=== PATIENT | male | born 1975 | race Caucasian/White ===

== ENCOUNTER 2019-04-15 09:25 | Emergency (ER) | payer OTHER ==
[2019-04-15 09:49] VITALS: RESP 18; TEMP 98.4
[2019-04-15] MEDS ORDERED: HYDROmorphone 1 MG/ML 1 ML SYRINGE IM STA (10:32)
[2019-04-15] MEDS ORDERED: ORPHENADRINE 30 MG/ML 2 ML VIAL IM STA (10:32)
--- NOTE | 2019-04-15 10:39 | ED ---
Back Pain HPI - General Chief Complaint: Back Pain/Injury Stated Complaint: Back pain Time Seen by Provider: 04/15/19 10:00 Source: patient, RN notes reviewed Mode of arrival: ambulatory Limitations: no limitations - History of Present Illness Initial Comments: This 43-year-old male presents emergency Department chief complaint low back pain last 2-3 days. Patient denies any trauma but states his chronic back pain which she's had effusion in the past. Patient states that she made injured it going up and down a ladder painting. Patient states that he is going back to [place] tomorrow states he has tried a bus. Patient states the pain is so bad it hurts to walk but states he can't get comfortable laying on his back with his knees bent up or laying on his side. He denies any difficulty urinating no bowel bladder incontinence or retention. No dysuria. Patient has no point appears or chills no nausea vomiting diarrhea constipation. - Related Data Previous Rx's Medication Instructions Recorded Cyclobenzaprine [Flexeril] 10 mg PO TID PRN #15 tab 04/15/19 Hydrocodone/Acetaminophen [Hardy 1 tab PO Q6HR PRN #12 tab 04/15/19 5-325] Ibuprofen [Motrin] 600 mg PO Q8HR PRN #30 tab 04/15/19 Allergies Allergy/AdvReac Type Severity Reaction Status Date / Time Iodine and Iodide Containing Allergy Unknown Verified 04/15/19 10:09 Produc Review of Systems ROS Statement: Those systems with pertinent positive or pertinent negative responses have been documented in the HPI. ROS Other: All systems not noted in ROS Statement are negative. Past Medical History Additional Past Medical History / Comment(s): CHRONIC BACK PAIN History of Any Multi-Drug Resistant Organisms: None Reported Past Surgical History: Back Surgery, Orthopedic Surgery Additional Past Surgical History / Comment(s): SHOULDER AND KNEE SURGERY Past Psychological History: No Psychological Hx Reported Smoking Status: Current every day smoker Past Alcohol Use History: None Reported Past Drug Use History: None Reported General Exam Limitations: no limitations General appearance: alert, in no apparent distress Head exam: Present: atraumatic, normocephalic, normal inspection Neck exam: Present: normal inspection, full ROM. Absent: tenderness, meningismus, lymphadenopathy Respiratory exam: Present: normal lung sounds bilaterally. Absent: respiratory distress, wheezes, rales, rhonchi, stridor Cardiovascular Exam: Present: regular rate, normal rhythm, normal heart sounds. Absent: systolic murmur, diastolic murmur, rubs, gallop, clicks GI/Abdominal exam: Present: soft, normal bowel sounds. Absent: distended, tenderness, guarding, rebound, rigid Extremities exam: Present: other (Lower extremity strength equal bilaterally neurovascular intact equal pulses equal color equal warmth) Back exam: Present: full ROM (Moderate discomfort with range of motion), tenderness (Diffuse lumbar). Absent: paraspinal tenderness, vertebral tenderness Neurological exam: Present: alert, oriented X3, CN II-XII intact, reflexes normal. Absent: motor sensory deficit Skin exam: Present: warm, dry, intact, normal color. Absent: rash Course Vital Signs 04/15/19 09:46 Temperature 98.4 F Pulse Rate 98 Respiratory 18 Rate Blood Pressure 163/96 O2 Sat by Pulse 97 Oximetry Medical Decision Making - Medical Decision Making 43-year-old male presents emergency from for low back pain patient has acute exacerbation of chronic low back pain. Patient has no red flag symptoms. Patient we discharged with pain medication. Return parameters were discussed. Disposition Clinical Impression: Acute exacerbation of chronic low back pain Disposition: HOME SELF-CARE Condition: Stable Instructions (If sedation given, give patient instructions): Acute Low Back Pain (ED) Additional Instructions: Please return to the Emergency Department if symptoms worsen or any other concerns. Prescriptions: Cyclobenzaprine [Flexeril] 10 mg PO TID PRN #15 tab PRN Reason: Muscle Spasm Ibuprofen [Motrin] 600 mg PO Q8HR PRN #30 tab PRN Reason: Pain Hydrocodone/Acetaminophen [Hardy 5-325] 1 tab PO Q6HR PRN #12 tab PRN Reason: Pain Is patient prescribed a controlled substance at d/c from ED?: Yes When asked, does pt state using other controlled substances?: No If prescribed controlled substance>3 days was MAPS reviewed?: Prescribed <3 Days If opioid is for acute pain is fill amount 7 days or less?: Yes If Rx opioid, was Start Talking consent form obtained?: Yes Referrals: Nonstaff,Physician [Primary Care Provider] - 1-2 days Time of Disposition: 10:38
[2019-04-15 11:25] VITALS: BP 157/68; PULSE 78
== END 2019-04-15 11:45 | disposition home or self-care (01) ==
LOC: EC 09:25
DX: G89.29 Other chronic pain (principal); M54.5 Low back pain; F17.200 Nicotine dependence, unspecified, uncomplicated; Z91.048 Other nonmedicinal substance allergy status; Z98.890 Other specified postprocedural states
CPT/HCPCS: 99283; 96372 ×2; J2360; J1170